=== PATIENT | female | born 1990 | race Caucasian/White ===

== ENCOUNTER 2024-08-29 14:27 | Emergency (ER) | payer MEDICAID, SELFPAY ==
[2024-08-29 14:28] VITALS: BMI 38.2
--- NOTE | 2024-08-29 14:40 | XR_ITS ---
Examination: Pelvic ultrasound, transabdominal, complete Technique: Transabdominal ultrasound of the pelvis performed using grayscale imaging Date and time of exam: August 29, 2024 1534 hrs. Indications: Lower abdominal pelvic pain with irregular heavy menses beginning 3 days ago Findings: Uterus 7.9 cm endometrial stripe 0.3 cm No uterine mass or intrauterine gestation Right ovary 3.6 cm arterial flow Left ovary 3.7 cm arterial flow 25 mm follicular cyst Impression: No uterine mass or intrauterine gestation, negative for retained products of conception Small left ovarian follicular cyst 18 x 25 mm
--- NOTE | 2024-08-29 14:40 | EKG_ITS ---
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1990 Requested By: Paco Resendez Order Number: [id number] Reading MD: Paco Resendez Measurements Intervals [place] Rate: 86 P: 58 [place]: 156 QRS: 3 QRSD: 92 T: 22 QT: 364 QTc: 437 Interpretive Statements SINUS RHYTHM LOW QRS VOLTAGE IN PRECORDIAL LEADS [QRS DEFLECTION < 1.0 mV IN CHEST LEADS] MINIMAL VOLTAGE CRITERIA FOR LVH, CONSIDER NORMAL VARIANT [MEETS CRITERIA IN ONE OF: R(aVL), S(V1), R(V5), R(V5/V6)+S(V1)] Compared to ECG 08/14/2018 13:11:46 Low QRS voltage now present Sinus tachycardia no longer present Short ME interval no longer present /store/S0/[id number].pdf
--- NOTE | 2024-08-29 14:41 | PD.EDRME ---
Rapid Medical Screening Exam RME Arrival date/time: 08/29/24 14:27 34-year-old female with no known medical history presents to the emergency room with a chief complaint of dizziness, lightheadedness, weakness. Patient states that she is on the third day of her period and she is passing big clots. Patient denies any . I have greeted and performed a focused initial assessment of this patient. A comprehensive ED assessment and evaluation of the patient, analysis of all test results, and completion of the medical decision making process will be conducted by additional ED providers. Chief Complaint: General Adult/Misc Complain Time Seen by Provider: 08/29/24 14:29 Vital signs reviewed by provider: Yes
[2024-08-29 14:43] VITALS: BP 143/99; PULSE 97; RESP 20; TEMP 36.9; O2SAT 98; BMI 38.2
[2024-08-29 15:16] LABS: Basophils # (Auto) 0.1 Thou/mm3 (0.0-0.2); Basophils % (Auto) 1 % (0-2.5); Eosinophils # (Auto) 0.1 Thou/mm3 (0.0-0.5); Eosinophils % (Auto) 1 % (0-10); Hematocrit 34.7 % (36.0-46.0); Hemoglobin 11.7 g/dL (12.0-16.0); Immature Granulocytes % (Auto) 0 % (0-0); Immature Granulocytes Auto 0.02 Thou/mm3 (0.00-0.00); Lymphocytes # (Auto) 2.8 Thou/mm3 (1.0-4.8); Lymphocytes % (Auto) 27 % (10-50); Mean Corpuscular HGB Conc 33.7 g/dl (31.0-37.0); Mean Corpuscular Hemoglobin 29.2 pg (25.0-35.0); Mean Corpuscular Volume 87 fL (80-100); Monocytes # (Auto) 0.5 Thou/mm3 (0.0-0.8); Monocytes % (Auto) 5 % (0-12); Neutrophils # (Auto) 6.9 Thou/mm3 (1.8-7.7); Neutrophils % (Auto) 67 % (37-80); Nucleated Red Blood Cell % 0 /100 WBC (0); Platelet Count 362 Thou/mm3 (140-440); Red Blood Count 4.01 Miln/mm3 (4.00-5.20); White Blood Count 10.3 Thou/mm3 (3.6-11.0)
[2024-08-29 15:35] LABS: Alanine Aminotransferase 23 U/L (10-49); Albumin, Serum 4.4 gm/dL (3.5-5.0); Albumin/Globulin Ratio 1.6 (1.2-2.2); Alkaline Phosphatase 58 U/L (46-116); Anion Gap 7 (7-16); Aspartate Amino Transferase 20 U/L (0-34); BUN/Creatinine Ratio 11 Ratio (12-20); Bilirubin,Total 0.5 mg/dL (0.3-1.2); Blood Urea Nitrogen 9 mg/dL (9-23); Calcium 9.1 mg/dL (8.3-10.6); Calcium (Corrected) 9.1 mg/dL (8.5-10.1); Carbon Dioxide 26.6 mMol/L (20.0-31.0); Chloride 108 mMol/L (98-107); Creatinine (Component) 0.8 mg/dL (0.6-1.3); Estimated Creatinine Clearance 108.4 mL/min (>60); Globulin 2.7 gm/dL (2.3-3.5); Glucose 120 mg/dL (74-106); Osmolality,Calculated 282 (275-295); Potassium 3.2 mMol/L (3.4-5.1); Sodium 142 mMol/L (136-145); Total Protein 7.1 gm/dL (5.7-8.2); Troponin I < 0.002 ng/mL (0.0-0.045); eGFR > 60 See Note
[2024-08-29 15:42] LABS: Collection Type, Urine Clean Catch
[2024-08-29 15:51] LABS: Bacteria,Urine Rare; Bilirubin,Urine Negative (Negative); Blood,Urine 3+ (Negative); Color,Urine Light-Red (Lt Yel-Yel); Glucose, Urine Negative (Negative); Ketones,Urine Negative (Negative); Leukocyte Esterase,Urine Positive (Negative); Nitrite,Urine Negative (Negative); PH,Urine 6.5 (5.0-7.0); Protein,Urine 1+ (Neg - Trace); RBC,Urine 183 /hpf (0-3); Specific Gravity,Urine 1.005 (1.001-1.035); Squamous Epithelial Cell,Urine 3 /hpf (0-5); Urobilinogen,Urine Negative mg/dL (0.0-1.0); WBC,Urine 6 /hpf (0-5)
[2024-08-29 15:55] LABS: Clarity,Urine Hazy (Clear/Hazy)
[2024-08-29 16:00] LABS: Partial Thromboplastin Time 26.9 Seconds (22.0-36.0); Prothrombin Time 10.7 Seconds (9.0-12.2)
--- NOTE | 2024-08-29 16:01 | XR_ITS ---
Examination: Abdomen sonogram, Limited Date and time of exam: August 29, 2024 1640 hrs. Indications: Right lower abdominal pain beginning 3 days ago Technique: Real-time bain scale transabdominal sonographic images of the upper abdomen obtained. Findings: No sonographic visualization appendix Impression: No sonographic visualization appendix
[2024-08-29 18:50] LABS: HCG Qualitative,Urine Negative
[2024-08-29] MEDS: POTASSIUM CHLORIDE 10% 20 MEQ/15 ML UDC 40 MEQ PO (19:02)
--- NOTE | 2024-08-29 19:14 | PD.EDADULT ---
ED General RME/HPI General Chief complaint: General Adult/Misc Complain Stated complaint: 3RD DAY OF PERIOD; HAVING ABNORMAL PAIN/SMELL Time Seen by Provider: 08/29/24 14:29 Arrival date/time: 08/29/24 14:27 RME / HPI RME / HPI narrative: 08/29/24 14:27 34-year-old female with no known medical history presents to the emergency room with a chief complaint of dizziness, lightheadedness, weakness. Patient states that she is on the third day of her period and she is passing big clots. Patient denies any . I have greeted and performed a focused initial assessment of this patient. A comprehensive ED assessment and evaluation of the patient, analysis of all test results, and completion of the medical decision making process will be conducted by additional ED providers. ------- This section includes all my notes and documentations, including HPI, PE, and ED course. Jamal Velázquez MD HPI: 34yo female presents to the ED for a chief complaint of diffuse abdominal pain when urinating. Patient states she is on day 3 of her period, reporting she's had significant diffuse abdominal pain when she urinates. She states she has been passing more blood clots than usual, reporting they have a foul odor. She was seen by her PCP and almost fainted, so she came in for evaluation. Patient reports associated lightheadedness, dizziness, and generalized weakness. She denies any falls or injuries. No other complaints reported. ROS: All negative except as documented in HPI. Physical Exam: General: Alert and oriented. No acute distress when remaining still. Eyes: Conjunctivae and lids clear. ENT: No nasal congestion. Neck: Supple. Heart: RRR. Lungs: No respiratory distress. Good air movement. No rhonchi, wheezing, rales. Abdomen: Soft and nontender. Legs: No clubbing, cyanosis, edema. Skin: Warm and dry. Neuro: Alert and oriented X 3. I reviewed all diagnostic test results. My interpretation of the EKG is sinus rhythm with no acute ST?T changes. My review of the US abdominal report is NAD. My review of the US pelvis report is NAD. Blood tests and urine tests unremarkable except UTI. At this point, diagnoses include UTI and dysmenorrhea. Prescribed cefdinir and recommended supportive care. Based on my best medical judgment, made decision no further evaluation or treatment indicated at this time. Patient understands and agrees to the discharge instructions customized and printed, see below. Discharge instructions from Dr. Velázquez: 1. After evaluation, your symptoms are due to UTI (early kidney infection) and severe menstruation pain. 2. Take cefdinir to kill the germs causing the infection. Increase oral fluid to flush it out. Maintain clear urine. If dark or yellow, increase oral fluid. 3. Zofran for nausea/vomiting. Toradol and Tylenol with codeine for pain. 4. See a private doctor on 09/01/24 if not completely better. 5. Seek immediate medical care with worsening, fever, or with any concerns. Jamal Velázquez MD Related Data Previous Rx's ?Medication ?Instructions ?Recorded acetaminophen 300 mg-codeine 30 mg 2 tab PO Q8H PRN pain #20 tabs 08/29/24 tablet cefdinir 300 mg capsule 300 mg PO BID #14 caps 08/29/24 ketorolac 10 mg tablet 10 mg PO Q8H PRN pain 5 days #10 08/29/24 tabs ondansetron 4 mg disintegrating 4 mg PO TID PRN nausea and 08/29/24 tablet vomiting 30 days #10 tabs Allergies Allergy/AdvReac Type Severity Reaction Status Date / Time No Known Allergies Allergy Verified 08/29/24 14:30 Review of Systems Review of Systems Systems Reviewed: All systems reviewed, normal except as documented Past Medical History Past Medical History CARDIAC: Positive Cardiac Disorders and Hypertension; Negative Congestive Heart Failure RESPIRATORY: Positive Asthma; Negative Chronic Obstructive Pulmonary Disease (COPD) GENITOURINARY: Negative Renal Disease ENDOCRINE: Positive Hypothyroidism; Negative Diabetes Mellitus Type 1 or Diabetes Mellitus Type 2 Surgical History SURGICAL: Positive Section Social History SMOKING STATUS: Former smoker ED Exam Narrative Physical exam: As noted in HPI. Course Quality Measures none Orders Category Date Time Status EKG (ED ONLY) *Do not use* NOW Care 08/29/24 14:40 Completed EKG (ED Only) Stat Exams 08/29/24 14:40 Draft US abdomen limited Stat Exams 08/29/24 16:01 Completed US pelvic complete Stat Exams 08/29/24 14:40 Completed CBC Stat Lab 08/29/24 15:06 Completed Comprehensive Metabolic Panel Stat Lab 08/29/24 15:06 Completed HCG Qualitative,Urine Stat Lab 08/29/24 15:29 Completed PT [Prothrombin Time with INR] Stat Lab 08/29/24 15:06 Completed PTT [Partial Thromboplastin Time] Stat Lab 08/29/24 15:06 Completed Troponin I Stat Lab 08/29/24 15:06 Completed Urinalysis Stat Lab 08/29/24 15:29 Completed Urine Culture Stat Lab 08/29/24 15:29 Received KCL 10% Liq UDC 15 ML Med 08/29/24 18:41 Discontinued 40 meq PO X1 ONE Vital Signs Vital signs: Vital Signs Temperature 98.5 F 08/29/24 14:43 Pulse Rate 97 08/29/24 14:43 Respiratory Rate 20 08/29/24 14:43 Blood Pressure 143/99 H 08/29/24 14:43 Pulse Oximetry (%) 98 08/29/24 14:43 Oxygen Delivery Method Room Air 08/29/24 14:43 [facility] Patient data External records reviewed:: [facility] previous records (Per chart review, patient was seen here on 05/16/21 for atypical chest pain.) Clinical information provided by:: patient Social determinants that could affect healthcare access:: none Patient has the following chronic illnesses:: HTN How is presenting disease/condition affected by chronic disease/condition?: uneffected by Evaluation data The following diagnostics were reviewed and interpreted by me:: lab results, radiology exam(s) and EKG tracing(s) Lab and/or radiology exams considered but not ordered:: none Interpretation Summary: UTI, Dysmenorrhea Medications Medications considered but not ordered:: none Medication administrations:: Medication Administration History Discontinued Medications Potassium Chloride (Potassium Chloride 10% 20 Meq/15 Ml Udc) 40 meq PO X1 ONE Stop: 08/29/24 18:42 Last Admin: 08/29/24 19:02 Dose: 40 meq Documented By: ER Potassium Chloride Consultations Consultation(s) initiated? (list below): No Diagnosis Differential Diagnosis ED Complaint MDM: UTI, pyelonephritis, appendicitis, dysmenorrhea, GERD, PUD, gastritis Most likely diagnosis given after review of the tests above:: UTI, Dysmenorrhea Admission Indicated Admission indicated?: not indicated Explain why admission is indicated or not indicated:: No criteria for admission. Admission Request Was there a request for admission?: No Disposition Plan Disposition Plan: Discharge Discharge Attestation Discharge Attestation: The patient and all family members were given an opportunity to ask questions and understood the discharge instructions. Discharge instructions specifically effects, indications for sooner follow up or return to the emergency department, and the expected course of current diagnosis. Patient condition: Stable Medical Decision Making MDM Narrative MDM Narrative: Scribe Attestation: 08/29/24 Nicole Martínez am scribing for and in the presence of Dr. Velázquez. Differential Diagnosis Differential Diagnosis: UTI, pyelonephritis, appendicitis, dysmenorrhea, GERD, PUD, gastritis Lab Data 08/29/24 15:06 08/29/24 15:06 Labs: Lab Results 08/29/24 08/29/24 Range/Units 15:06 15:29 WBC 10.3 (3.6-11.0) Thou/mm3 RBC 4.01 (4.00-5.20) Miln/mm3 Hgb 11.7 L (12.0-16.0) g/dL Hct 34.7 L (36.0-46.0) % MCV 87 (80-100) fL MCH 29.2 (25.0-35.0) pg MCHC 33.7 (31.0-37.0) g/dl RDW Std Deviation 40.0 (36.4-46.3) fL Plt Count 362 (140-440) Thou/mm3 Neut % (Auto) 67 (37-80) % Lymph % (Auto) 27 (10-50) % [place] % (Auto) 5 (0-12) % Eos % (Auto) 1 (0-10) % Baso % (Auto) 1 (0-2.5) % Neut # (Auto) 6.9 (1.8-7.7) Thou/mm3 Lymph # (Auto) 2.8 (1.0-4.8) Thou/mm3 [place] # (Auto) 0.5 (0.0-0.8) Thou/mm3 Eos # (Auto) 0.1 (0.0-0.5) Thou/mm3 Baso # (Auto) 0.1 (0.0-0.2) Thou/mm3 Immature Gran # (Auto) 0.02 H (0.00-0.00) Thou/mm3 Absolute Nucleated RBC 0.00 (0.00-0.00) Thou/mm3 Immature Gran % 0 (0-0) % Nucleated RBC % 0 (0) /100 WBC PT 10.7 (9.0-12.2) Seconds INR 1.0 (0.9-1.3) APTT 26.9 (22.0-36.0) Seconds Sodium 142 (136-145) mMol/L Potassium 3.2 L (3.4-5.1) mMol/L Chloride 108 H (98-107) mMol/L Carbon Dioxide 26.6 (20.0-31.0) mMol/L Anion Gap 7 (7-16) BUN 9 (9-23) mg/dL Creatinine 0.8 (0.6-1.3) mg/dL Estim Creat Clear Calc 108.4 (>60) mL/min eGFR > 60 (60 - ) See Note BUN/Creatinine Ratio 11 L (12-20) Ratio Glucose 120 H (74-106) mg/dL Calculated Osmolality 282 (275-295) Calcium 9.1 (8.3-10.6) mg/dL Corrected Calcium 9.1 (8.5-10.1) mg/dL Total Bilirubin 0.5 (0.3-1.2) mg/dL AST 20 (0-34) U/L ALT 23 (10-49) U/L Alkaline Phosphatase 58 (46-116) U/L Troponin I < 0.002 (0.0-0.045) ng/mL Total Protein 7.1 (5.7-8.2) gm/dL Albumin 4.4 (3.5-5.0) gm/dL Globulin 2.7 (2.3-3.5) gm/dL Albumin/Globulin Ratio 1.6 (1.2-2.2) Ur Collection Type Clean Catch Urine Color Light-Red (Lt Yel-Yel) Urine Clarity Hazy (Clear/Hazy) Urine pH 6.5 (5.0-7.0) Ur Specific [place] 1.005 (1.001-1.035) Urine Protein 1+ A (Neg - Trace) Urine Glucose (UA) Negative (Negative) Urine Ketones Negative (Negative) Urine Blood 3+ A (Negative) Urine Nitrite Negative (Negative) Urine Bilirubin Negative (Negative) Urine Urobilinogen (Auto) Negative (0.0-1.0) mg/dL Ur Leukocyte Esterase Positive (Negative) Urine RBC 183 H (0-3) /hpf Urine WBC 6 H (0-5) /hpf Ur Squamous Epith Cells 3 (0-5) /hpf Urine Bacteria Rare (None) Urine HCG, Qual Negative Discharge Plan Plan Patient Disposition: HOME (Self Care) Prescriptions/Referrals Prescriptions/Med Rec: New acetaminophen-codeine 300-30 mg tablet 2 tab PO Q8H MDD 6 PRN (Reason: pain) Qty: 20 0RF ketorolac 10 mg tablet 10 mg PO Q8H PRN (Reason: pain) 5 Days Qty: 10 0RF ondansetron 4 mg tablet,disintegrating 4 mg PO TID PRN (Reason: nausea and vomiting) 30 Days Qty: 10 0RF cefdinir 300 mg capsule 300 mg PO BID Qty: 14 0RF Referrals: Arsen Menezes([facility])MD [Primary Care Provider] - In 1 week Problem List Clinical Impression: UTI (urinary tract infection), Dysmenorrhea Patient/Caregiver Discharge Instructions Discharge Activity: activity as tolerated Education Materials: ED MENSTRUAL CRAMPING, ED CYSTITIS Female Adult Additional Instructions: Discharge instructions from Dr. Velázquez: 1. After evaluation, your symptoms are due to UTI (early kidney infection) and severe menstruation pain. 2. Take cefdinir to kill the germs causing the infection.? Increase oral fluid to flush it out.? Maintain clear urine.? If dark or yellow, increase oral fluid. 3. Zofran for nausea/vomiting.? Toradol and Tylenol with codeine for pain. 4. See a private doctor on 09/01/24 if not completely better. 5. Seek immediate medical care with worsening, fever, or with any concerns. Print Language: Telugu Stand Alone Forms: Maddy Award Info., Patient Portal Info Letter
== END 2024-08-29 19:32 | disposition home or self-care (01) ==
PROVIDERS: Nurse Practitioner Family; Emergency Provider Emergency Medicine; PCP Family Medicine
DX: N39.0 Urinary tract infection, site not specified (principal); N94.6 Dysmenorrhea, unspecified; R10.31 Right lower quadrant pain; R10.2 Pelvic and perineal pain; R94.31 Abnormal electrocardiogram [ECG] [EKG]
CPT/HCPCS: 36415; 76705; 76856; 80053; 81001; 81025; 84484; 85025; 85610; 85730; 87086; 93005; 99284; A9270

== ENCOUNTER 2024-12-08 15:00 | Emergency (ER) | payer MEDICAID, SELFPAY ==
[2024-12-08 15:07] VITALS: BP 155/92; PULSE 80; RESP 18; TEMP 36.9; O2SAT 98; BMI 37.2
--- NOTE | 2024-12-08 15:20 | EKG_ITS ---
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
--- NOTE | 2024-12-08 15:20 | XR_ITS ---
Examination: CT brain head without contrast. 2-D sagittal coronal reconstructions Date and time of exam:December 08, 2024 1602 hours Comparison July 07, 2018 CTDI: vol (mGy):49 DLP: (mGycm):1002 INDICATIONS: Headaches dizziness weakness beginning one week ago Technique: Multiple CT axial sections of the brain have been obtained, 5 mm slice thickness. Contrast has not been administered. 2-D sagittal, coronal reconstructions have been obtained Low dose protocols were performed. One or more of the following dose reduction techniques were used; automated exposure control, adjustment of the mA and/or KV according to patient size, use of iterative reconstruction technique. Findings: No significant ventricular enlargement. Intra-axial or extra-axial hemorrhage density is not seen. No mass effect or midline shift Basal cisterns are not remarkable. Fourth ventricle is midline. Cranial vault intact. Impression: Negative for acute hemorrhage, mass effect or midline shift
--- NOTE | 2024-12-08 15:21 | PD.EDRME ---
Rapid Medical Screening Exam RME Arrival date/time: 12/08/24 15:00 34-year-old female with no known medical history presents to the emergency room with a chief complaint of dizziness, headache, lightheadedness x 5 days I have greeted and performed a focused initial assessment of this patient. A comprehensive ED assessment and evaluation of the patient, analysis of all test results, and completion of the medical decision making process will be conducted by additional ED providers. Chief Complaint: Dizziness Time Seen by Provider: 12/08/24 15:08 Vital signs: Vital Signs Temperature 98.5 F 12/08/24 15:07 Pulse Rate 80 12/08/24 15:07 Respiratory Rate 18 12/08/24 15:07 Blood Pressure 155/92 H 12/08/24 15:07 Pulse Oximetry (%) 98 12/08/24 15:07 Oxygen Delivery Method Room Air 12/08/24 15:07 Vital signs reviewed by provider: Yes
[2024-12-08 15:39] LABS: Basophils # (Auto) 0.1 Thou/mm3 (0.0-0.2); Basophils % (Auto) 1 % (0-2.5); Eosinophils # (Auto) 0.1 Thou/mm3 (0.0-0.5); Eosinophils % (Auto) 1 % (0-10); Hematocrit 37.4 % (36.0-46.0); Hemoglobin 12.3 g/dL (12.0-16.0); Immature Granulocytes Auto 0.06 Thou/mm3 (0.00-0.00); Lymphocytes # (Auto) 3.2 Thou/mm3 (1.0-4.8); Lymphocytes % (Auto) 24 % (10-50); Mean Corpuscular HGB Conc 32.9 g/dl (31.0-37.0); Mean Corpuscular Hemoglobin 29.7 pg (25.0-35.0); Mean Corpuscular Volume 90 fL (80-100); Monocytes # (Auto) 0.7 Thou/mm3 (0.0-0.8); Monocytes % (Auto) 5 % (0-12); Neutrophils # (Auto) 9.4 Thou/mm3 (1.8-7.7); Neutrophils % (Auto) 69 % (37-80); Nucleated Red Blood Cell # 0.00 Thou/mm3 (0.00-0.00); Nucleated Red Blood Cell % 0 /100 WBC (0); Platelet Count 370 Thou/mm3 (140-440); RDW Standard Deviation 41.6 fL (36.4-46.3); Red Blood Count 4.14 Miln/mm3 (4.00-5.20); White Blood Count 13.5 Thou/mm3 (3.6-11.0)
[2024-12-08 15:56] LABS: B-Type Natriuretic Peptide 24 pg/mL (0-100)
[2024-12-08 15:58] LABS: Alanine Aminotransferase 28 U/L (10-49); Albumin, Serum 4.4 gm/dL (3.5-5.0); Albumin/Globulin Ratio 1.6 (1.2-2.2); Alkaline Phosphatase 58 U/L (46-116); Anion Gap 7 (7-16); Aspartate Amino Transferase 23 U/L (0-34); BUN/Creatinine Ratio 9 Ratio (12-20); Bilirubin,Total 0.4 mg/dL (0.3-1.2); Blood Urea Nitrogen 8 mg/dL (9-23); Calcium 9.6 mg/dL (8.3-10.6); Calcium (Corrected) 9.6 mg/dL (8.5-10.1); Carbon Dioxide 27.5 mMol/L (20.0-31.0); Chloride 106 mMol/L (98-107); Creatinine (Component) 0.9 mg/dL (0.6-1.3); Estimated Creatinine Clearance 94.9 mL/min (>60); Globulin 2.7 gm/dL (2.3-3.5); Glucose 108 mg/dL (74-106); Magnesium 1.6 mg/dL (1.6-2.6); Osmolality,Calculated 278 (275-295); Potassium 3.9 mMol/L (3.4-5.1); Sodium 140 mMol/L (136-145); Total Protein 7.1 gm/dL (5.7-8.2); Troponin I < 0.002 ng/mL (0.0-0.045); eGFR > 60 See Note
[2024-12-08 16:23] LABS: Collection Type, Urine Clean Catch
[2024-12-08 16:28] LABS: Bilirubin,Urine Negative (Negative); Blood,Urine Negative (Negative); Clarity,Urine Clear (Clear/Hazy); Color,Urine Colorless (Lt Yel-Yel); Glucose, Urine Negative (Negative); Ketones,Urine Negative (Negative); Leukocyte Esterase,Urine Negative (Negative); Nitrite,Urine Negative (Negative); PH,Urine 6.5 (5.0-7.0); Protein,Urine Negative (Neg - Trace); RBC,Urine 1 /hpf (0-3); Specific Gravity,Urine 1.004 (1.001-1.035); Squamous Epithelial Cell,Urine < 1 /hpf (0-5); Urobilinogen,Urine Negative mg/dL (0.0-1.0); WBC,Urine < 1 /hpf (0-5)
[2024-12-08 16:43] LABS: Amphetamine/Methamp Scrn,U Negative (Negative); Barbiturate Screen,Urine Negative (Negative); Benzodiazepines Screen,Urine Negative (Negative); Benzoylecgonine Screen, Ur Negative (Negative); Fentanyl Screen,Urine Negative (Negative); Opiate Screen,Urine Negative (Negative); THC Screen,Urine Negative (Negative)
--- NOTE | 2024-12-08 19:53 | PD.EDDIZZY ---
ED Dizzyness RME/HPI General Chief Complaint: Dizziness Stated Complaint: Dizzy, weak, shaky Time Seen by Provider: 12/08/24 15:08 Arrival date/time: 12/08/24 15:00 RME / HPI RME / HPI Narrative: 12/08/24 15:00 34-year-old female with no known medical history presents to the emergency room with a chief complaint of dizziness, headache, lightheadedness x 5 days I have greeted and performed a focused initial assessment of this patient. A comprehensive ED assessment and evaluation of the patient, analysis of all test results, and completion of the medical decision making process will be conducted by additional ED providers. DR. PEREZ MAIN ED EVALUATION: 34 y/o female presents to ED c/o Related Data Previous Rx's ?Medication ?Instructions ?Recorded acetaminophen 300 mg-codeine 30 mg 2 tab PO Q8H PRN pain #20 tabs 08/29/24 tablet cefdinir 300 mg capsule 300 mg PO BID #14 caps 08/29/24 Allergies Allergy/AdvReac Type Severity Reaction Status Date / Time No Known Allergies Allergy Verified 12/08/24 15:03 Review of Systems Review of Systems Systems Reviewed: All systems reviewed, normal except as documented Past Medical History Past Medical History CARDIAC: Positive Cardiac Disorders and Hypertension RESPIRATORY: Positive Asthma ENDOCRINE: Positive Hypothyroidism Social History SMOKING STATUS: Former smoker ED Exam Narrative Physical exam: Generally patient is alert oriented x 3 in no obvious distress, heart regular rate and rhythm, lungs clear to auscultation equal bilaterally abdomen soft bowel sounds present nondistended nontender skin warm pale and dry neurologic exam slightly tremulous bilaterally with lxjnbi-hi-yupy movements intact. No focal motor deficits. No facial asymmetry. Alert and oriented x 4. Course Quality Measures none Orders Category Date Time Status EKG (ED ONLY) *Do not use* NOW Care 12/08/24 15:[address] head/brain wo con Stat Exams 12/08/24 15:20 Completed EKG (ED Only) Stat Exams 12/08/24 15:20 Draft B-Type Natriuretic Peptide Stat Lab 12/08/24 15:32 Completed CBC Stat Lab 12/08/24 15:32 Completed Comprehensive Metabolic Panel Stat Lab 12/08/24 15:32 Completed Drug Screen,Urine Stat Lab 12/08/24 16:18 Completed Magnesium Stat Lab 12/08/24 15:32 Completed Troponin I Stat Lab 12/08/24 15:32 Completed Urinalysis Stat Lab 12/08/24 16:18 Completed Vital Signs Vital signs: Vital Signs Temperature 98.5 F 12/08/24 15:07 Pulse Rate 80 12/08/24 15:07 Respiratory Rate 18 12/08/24 15:07 Blood Pressure 155/92 H 12/08/24 15:07 Pulse Oximetry (%) 98 12/08/24 15:07 Oxygen Delivery Method Room Air 12/08/24 15:07 Dizziness MDM Narrative MDM Narrative:: I interpreted all labs. There was no significant abnormality. Presenting blood pressure was 155/92. EKG was normal. Patient states no possibility of . Head CT was obtained prior to my evaluation which was normal. I had a long discussion with the patient about her lab results and the fact that they appear relatively unremarkable. Since it sounds like the patient may be having near syncopal episodes I will refer the patient back to her primary care physician for possible cardiology referral. Patient data External records reviewed:: [facility] previous records (Reviewed prior ED records from 08/29/24. Patient was seen for Dysmenorrhea.) Clinical information provided by:: patient Social determinants that could affect healthcare access:: none Patient has the following chronic illnesses:: Hypertension, Asthma, Hypothyroidism How is presenting disease/condition affected by chronic disease/condition?: exacerbated by Evaluation data The following diagnostics were reviewed and interpreted by me:: lab results, radiology exam(s) and EKG tracing(s) Lab and/or radiology exams considered but not ordered:: None Interpretation Summary: RADIOLOGY Head/Brain CT: Findings: No significant ventricular enlargement. Intra-axial or extra-axial hemorrhage density is not seen. No mass effect or midline shift Basal cisterns are not remarkable. Fourth ventricle is midline. Cranial vault intact. Impression: Negative for acute hemorrhage, mass effect or midline shift Medications / Prescriptions Medications or Prescriptions considered but not ordered:: None Medication administrations:: See above if any Consultations Consultation(s) initiated? (list below): No Diagnosis Dizziness Differential Diagnosis: adverse reaction to drug, benign paroxysmal positional vertigo, orthostatic hypotension, vertebral basilar insufficiency, cerebrovascular accident, acute vestibular neuronitis and transient cerebral ischemia Most likely diagnosis given after review of the tests above:: Near syncope Admission Indicated Admission indicated?: not indicated Explain why admission is indicated or not indicated:: Patient does not meet admission criteria. Admission Request Was there a request for admission?: No Disposition Plan Disposition Plan: other (specify) Discharge Plan Plan Patient Disposition: HOME (Self Care) Prescriptions/Referrals Prescriptions/Med Rec: No Action acetaminophen-codeine 300-30 mg tablet 2 tab PO Q8H MDD 6 PRN (Reason: pain) Qty: 20 0RF cefdinir 300 mg capsule 300 mg PO BID Qty: 14 0RF Referrals: No Primary/Family,Physician [Primary Care Provider] - In 1 week Problem List Clinical Impression: Near syncope Patient/Caregiver Discharge Instructions Additional Instructions: Off work through December 15. Follow-up with your doctor for cardiology referral. Return to ER as needed or if condition worsens. Print Language: Telugu Stand Alone Forms: Maddy Award Info., Patient Portal Info Letter
[2024-12-08 20:00] VITALS: BP 138/90; PULSE 82; RESP 18; TEMP 36.7; O2SAT 99
--- NOTE | 2024-12-08 20:08 | EDNOTE_ITS ---
Emergency Room Addendum Addendum Narrative: HPI: 34-year-old female with a 5-day history of feeling as if she is going to pass out. She feels dizzy and feels as if she is going to pass out with mild strange feeling in her head, possibly a headache. She denies prior episodes. No incidences that could have led to this feeling 5 days ago. She denies head trauma. She was in her normal state of health until 5 days ago. She is able to walk. She feels weak all over. No seizure activity. No history of hyper tension or diabetes.
== END 2024-12-08 20:12 | disposition home or self-care (01) ==
PROVIDERS: Nurse Practitioner Family; Emergency Provider Emergency Medicine
DX: R42 Dizziness and giddiness (principal); R53.1 Weakness; I49.8 Other specified cardiac arrhythmias
CPT/HCPCS: 36415; 70450; 80053; 80307; 81001; 83735; 83880; 84484; 85025; 93005; 99283

== ENCOUNTER → 2024-12-21 | Outpatient (CLI) | payer MEDICAID, SELFPAY ==
--- NOTE | 2024-12-21 09:22 | XR_ITS ---
Examination: Transvaginal ultrasound of the pelvis, complete Technique: Transvaginal sonographic images pelvis performed using bain scale imaging Exam date and time: December 21, 2024 1005 hours INDICATIONS: Pelvic pain beginning several weeks ago FINDINGS: Uterus 8.0 cm endometrial stripe 0.9 cm Minimal fluid in the endometrial canal. No uterine mass Right ovary 3.8 cm arterial flow 15 mm follicular cyst Left ovary 4.2 cm arterial flow small follicles, the largest 12 mm IMPRESSION: No uterine mass or intrauterine gestation.
--- NOTE | 2024-12-21 09:22 | XR_ITS ---
Examination: Thyroid sonography. TECHNIQUE: Grayscale sonographic images thyroid lobes Date and time: December 25, 2024 0951 hours INDICATIONS: Enlarged thyroid on examination today FINDINGS: Right thyroid 4.1 cm. Left thyroid 3.8 cm. No cystic or solid nodules IMPRESSION: Negative examination
--- NOTE | 2024-12-21 09:22 | XR_ITS ---
Examination: Pelvic ultrasound, transabdominal, complete Technique: Transabdominal ultrasound of the pelvis performed using grayscale imaging Date and time of exam: December 21, 2024 0955 hours INDICATIONS: Pelvic pain beginning several weeks ago TECHNIQUE: Uterus 8.4 cm I 0.6 cm No uterine mass Right ovary 4.7 cm arterial flow small follicles Left ovary 4.4 cm arterial flow cyst 18 x 15 mm with internal echoes IMPRESSION:: Prominent ovaries Left hemorrhagic ovarian cyst 18 x 11 x 15 mm Recommend 3-6 month follow-up pelvic sonography
[2024-12-21 09:57] LABS: HCG Qualitative,Urine Negative
--- NOTE | 2024-12-21 09:57 | XR_ITS ---
Examination: CT abdomen with intravenous contrast CT pelvis with intravenous contrast 2-D coronal reconstructions 2-D sagittal reconstructions Date and time of exam:December 21, 2024 1036 hours INDICATIONS: Generalized abdominal pain beginning 2 weeks ago. CTDI: vol (mGy) 13 DLP: (mGycm) 759 Technique: Multiple axial sections of the abdomen and pelvis have been obtained. 64 slice high-resolution scanner used. 3 mm axial sections have been obtained, post intravenous injection 60 cc Isovue-370 2-D sagittal, coronal reconstructions obtained. Low dose protocols were performed. One or more of the following dose reduction techniques were used; automated exposure control, adjustment of the mA and/or KV according to patient size, use of iterative reconstruction technique. Findings: No focal liver or splenic lesions No gallstones No pancreatic or adrenal mass No renal or ureteral calculi, no hydronephrosis Aorta normal size No pericecal inflammatory change 13 mm fat-containing umbilical hernia No bowel obstruction Anteverted uterus Mass contiguous with the fundus of uterus on the right side which is likely mildly prominent right ovary Bladder intact Mild disc narrowing L5-S1 IMPRESSION: No renal or ureteral calculi, no hydronephrosis No pericecal inflammatory change Mildly prominent right ovary
== END | disposition home or self-care (01) ==
LOC: CCTX 08:23
PROVIDERS: PCP Nurse Practitioner Family; Referring Provider Nurse Practitioner Family; Visit Provider Nurse Practitioner Family
DX: E04.9 Nontoxic goiter, unspecified (principal); R10.817 Generalized abdominal tenderness; R11.0 Nausea; R27.0 Ataxia, unspecified; R42 Dizziness and giddiness; N83.8 Other noninflammatory disorders of ovary, fallopian tube and broad ligament
CPT/HCPCS: 74177; 76536; 76830; 76856; 81025; A4649; Q9967

== ENCOUNTER 2025-01-18 09:32 | Emergency (ER) | payer MEDICAID, SELFPAY ==
[2025-01-18 09:33] VITALS: BMI 39.8
[2025-01-18 09:42] VITALS: BP 140/96; PULSE 92; RESP 19; TEMP 37; O2SAT 99
--- NOTE | 2025-01-18 09:53 | XR_ITS ---
Examination: PA lateral chest 2 views TECHNIQUE: Upright PA lateral chest 2 views Date and time: January 18, 2025 1011 hours, comparison March 23, 2024 INDICATIONS: Chest pain weakness bodyaches beginning one week ago FINDINGS: Normal heart size The lungs are clear. The osseous structures are intact IMPRESSION: No active disease
--- NOTE | 2025-01-18 09:53 | EKG_ITS ---
[facility] Test Date: 2025-01-18 Pat Name: ZEYAD ALEXANDER Department: Room: - Gender: Female Software Technical Lead: : 1990 Requested By: Aiden Michael (PETRONA) Order Number: [id number] Reading MD: Aiden Michael (DEBRANDER) Measurements Intervals Radiant Rate: 89 P: 45 MS: 146 QRS: 13 QRSD: 92 T: 35 QT: 362 QTc: 442 Interpretive Statements SINUS RHYTHM Compared to ECG 12/08/2024 15:24:15 Sinus arrhythmia no longer present /store/S0/[id number].pdf
[2025-01-18 10:13] LABS: Basophils # (Auto) 0.1 Thou/mm3 (0.0-0.2); Basophils % (Auto) 1 % (0-2.5); Eosinophils # (Auto) 0.1 Thou/mm3 (0.0-0.5); Eosinophils % (Auto) 1 % (0-10); Hematocrit 35.9 % (36.0-46.0); Hemoglobin 12.0 g/dL (12.0-16.0); Immature Granulocytes Auto 0.05 Thou/mm3 (0.00-0.00); Lymphocytes # (Auto) 2.8 Thou/mm3 (1.0-4.8); Lymphocytes % (Auto) 30 % (10-50); Mean Corpuscular HGB Conc 33.4 g/dl (31.0-37.0); Mean Corpuscular Hemoglobin 30.2 pg (25.0-35.0); Mean Corpuscular Volume 90 fL (80-100); Monocytes # (Auto) 0.5 Thou/mm3 (0.0-0.8); Monocytes % (Auto) 6 % (0-12); Neutrophils # (Auto) 5.6 Thou/mm3 (1.8-7.7); Neutrophils % (Auto) 61 % (37-80); Nucleated Red Blood Cell # 0.00 Thou/mm3 (0.00-0.00); Nucleated Red Blood Cell % 0 /100 WBC (0); Platelet Count 380 Thou/mm3 (140-440); RDW Standard Deviation 40.9 fL (36.4-46.3); Red Blood Count 3.98 Miln/mm3 (4.00-5.20); White Blood Count 9.2 Thou/mm3 (3.6-11.0)
[2025-01-18 10:26] LABS: Collection Type, Urine Clean Catch
[2025-01-18 10:30] LABS: HCG Qualitative,Urine Negative
[2025-01-18 10:33] LABS: Bacteria,Urine Rare; Bilirubin,Urine Negative (Negative); Blood,Urine Negative (Negative); Clarity,Urine Clear (Clear/Hazy); Color,Urine Colorless (Lt Yel-Yel); Culture Indicated,Urine Not Indicated; Glucose, Urine Negative (Negative); Ketones,Urine Negative (Negative); Leukocyte Esterase,Urine Negative (Negative); Nitrite,Urine Negative (Negative); PH,Urine 6.5 (5.0-7.0); Protein,Urine Negative (Neg - Trace); RBC,Urine 1 /hpf (0-3); Specific Gravity,Urine 1.004 (1.001-1.035); Squamous Epithelial Cell,Urine 1 /hpf (0-5); Urobilinogen,Urine Negative mg/dL (0.0-1.0); WBC,Urine < 1 /hpf (0-5)
[2025-01-18 10:34] LABS: Alanine Aminotransferase 30 U/L (10-49); Albumin, Serum 4.5 gm/dL (3.5-5.0); Albumin/Globulin Ratio 1.8 (1.2-2.2); Alkaline Phosphatase 60 U/L (46-116); Anion Gap 12 (7-16); Aspartate Amino Transferase 20 U/L (0-34); BUN/Creatinine Ratio 6 Ratio (12-20); Bilirubin,Total 0.4 mg/dL (0.3-1.2); Blood Urea Nitrogen 6 mg/dL (9-23); Calcium 10.0 mg/dL (8.3-10.6); Calcium (Corrected) 10.0 mg/dL (8.5-10.1); Carbon Dioxide 24.2 mMol/L (20.0-31.0); Chloride 104 mMol/L (98-107); Creatinine (Component) 1.0 mg/dL (0.6-1.3); Estimated Creatinine Clearance 88.7 mL/min (>60); Globulin 2.5 gm/dL (2.3-3.5); Glucose 91 mg/dL (74-106); Osmolality,Calculated 277 (275-295); Potassium 3.8 mMol/L (3.4-5.1); Sodium 140 mMol/L (136-145); Total Protein 7.0 gm/dL (5.7-8.2); Troponin I < 0.002 ng/mL (0.0-0.045); eGFR > 60 See Note
[2025-01-18 10:38] LABS: Amphetamine/Methamp Scrn,U Negative (Negative); Barbiturate Screen,Urine Negative (Negative); Benzodiazepines Screen,Urine Negative (Negative); Benzoylecgonine Screen, Ur Negative (Negative); Fentanyl Screen,Urine Negative (Negative); Opiate Screen,Urine Negative (Negative); THC Screen,Urine Negative (Negative)
[2025-01-18 12:20] VITALS: BP 150/93; PULSE 89; RESP 19; TEMP 36.8; O2SAT 98
--- NOTE | 2025-01-18 12:46 | EDNOTE_ITS ---
ED General RME/HPI General Chief complaint: Shortness of Breath/Dyspnea Stated complaint: DIFF BREATHNG x 2 DAYS, UTI x 3 WEEKS Time Seen by Provider: 01/18/25 09:54 Arrival date/time: 01/18/25 09:32 RME / HPI RME / HPI narrative: 34-year-old female patient with no significant past medical history, came in for evaluation regarding feeling ill. Patient told me that she has been having on and off shortness of breath, not feeling well, was diagnosed with UTI 3 weeks ago and was advised to come to the emergency room because antibiotic she was taking which is Bactrim is resistant to the culture and sensitivity results. Patient was also given 3 shots of antibiotic IM. Currently patient is not having any symptoms of dysuria frequency back pain or other complaints. No cough no fever. Related Data Previous Rx's ?Medication ?Instructions ?Recorded acetaminophen 300 mg-codeine 30 mg 2 tab PO Q8H PRN pa in #20 tabs 08/29/24 tablet cefdinir 300 mg capsule 300 mg PO BID #14 caps 08/29 Allergies Allergy/AdvReac Type Severity Reaction Status Date / Time No Known Allergies Allergy Verified 01/18/25 09:36 Review of Systems Review of Systems Narrative Review of Systems: Review of system reviewed and within normal limits except mentioned in HPI ED Exam Narrative Physical exam: VITAL SIGNS: Reviewed. GENERAL APPEARANCE: Alert and interactive, follows commands, no acute distress, HEAD AND FACE: Non-traumatic. ENT: PERRL, pink conjunctivitis, eyelid no trauma, Mucous membrane moist. NECK: Supple, nontender, no nuchal rigidity. CHEST: No tenderness, no crepitus, no paradoxical movement, no retractions. LUNGS: Clear, well ventilated, symmetric, no rales, no wheezing, no ronchi, no stridor, good breath sounds bilaterally. HEART: Regular rate, regular rhythm, no murmur, no gallops. ABDOMEN: Soft, positive bowel sounds, nondistended, no guarding, nontender, no rebound, no masses, RECTAL: Deferred. GENITAL: Deferred. NEUROLOGICAL: Gross motor function intact sensory function intact, Appropriate for age. MUSCULOSKELETAL: low back nontender, full range of motion. EXTREMITIES: Nontender, full range of motion. SKIN: Color pink, dry, no rash, no lacerations, no abrasions, no contusions. LYMPHATICS: Deferred. Course Quality Measures none Orders Category Date Time Status Bedside COVID-19 Antigen Test NOW Care 01/18/25 09:53 Active Bedside Influenza A&B Antigen Test NOW Care 01/18/25 09:53 Completed EKG (ED ONLY) *Do not use* NOW Care 01/18/25 09:53 Completed EKG (ED Only) Stat Exams 01/18/25 09:53 Draft XR chest 2V Stat Exams 01/18/25 09:53 Completed CBC Stat Lab 01/18/25 10:06 Completed Comprehensive Metabolic Panel Stat Lab 01/18/25 10:06 Completed Drug Screen,Urine Stat Lab 01/18/25 10:05 Completed HCG Qualitative,Urine Stat Lab 01/18/25 10:05 Completed Troponin I Stat Lab 01/18/25 10:06 Completed UA, C/S IF [Urinalysis, C/S if Indicated] Stat Lab 01/18/25 10:05 Completed Vital Signs Vital signs: Vital Signs Temperature 98.6 F 01/18/25 09:42 Pulse Rate 92 01/18/25 09:42 Respiratory Rate 19 01/18/25 09:42 Blood Pressure 140/96 H 01/18/25 09:42 Pulse Oximetry (%) 99 01/18/25 09:42 Oxygen Delivery Method Room Air 01/18/25 09:42 Discharge Plan Plan Patient Disposition: HOME (Self Care) Discharge Disposition comment: Stable Prescriptions/Referrals Prescriptions/Med Rec: No Action acetaminophen-codeine 300-30 mg tablet 2 tab PO Q8H MDD 6 PRN (Reason: pain) Qty: 20 0RF cefdinir 300 mg capsule 300 mg PO BID Qty: 14 0RF Referrals: No Primary/Family,Physician [Primary Care Provider] - In 1 week Problem List Clinical Impression: General ill feeling Patient/Caregiver Discharge Instructions Discharge Activity: activity as tolerated Education Materials: ED Symptoms With Uncertain Cause Additional Instructions: Thank you for the opportunity for serving you today. You are stable for discharged . You are advised to: Follow-up with your PCP in 1 to 2 days Return to ED for worsening of symptoms Increase oral fluids Print Language: [place] Stand Alone Forms: Maddy Award Info., Patient Portal Info Letter PA/AMALIA Supervising Physician PA/AMALIA Supervising Physician: MD glo MDM Narrative MDM hospital course: 34-year-old female patient with no significant past medical history, came in for evaluation regarding feeling ill. Patient told me that she has been having on and off shortness of breath, not feeling well, was diagnosed with UTI 3 weeks ago and was advised to come to the emergency room because antibiotic she was taking which is Bactrim is resistant to the culture and sensitivity results. Patient was also given 3 shots of antibiotic IM. Currently patient is not having any symptoms of dysuria frequency back pain or other complaints. No cough no fever. EKG showed normal sinus rhythm, no ST segment elevation or depression noted. I personally reviewed and interpreted the x-ray of this patient. There is no acute abnormalities found, no infiltrates no pneumothorax no hemothorax normal chest x-ray. Review of other structures was without significant abnormal findings also. I additionally reviewed the radiologist report and agree with the interpretation. Laboratory workup all came back normal including normal urine no leukocytosis the rest of the labs normal. Results discussed with the patient was also given a copy of her laboratory results chest x-ray and EKG pending. Patient was adv ised to follow-up closely with PCP regarding the antibiotic that was prescribed for her today which is Augmentin. I told her it is her decision and and a decision from the PCP whether to continue or not. At this time I do not believe patient needs antibiotic. Stable for discharge home.
== END 2025-01-18 13:11 | disposition home or self-care (01) ==
PROVIDERS: Nurse Practitioner Primary Care; Emergency Provider Family Medicine
DX: R06.02 Shortness of breath (principal)
CPT/HCPCS: 36415; 71046; 80053; 80307; 81001; 81025; 84484; 85025; 87400; 87811; 93005; 99283

== ENCOUNTER → 2025-03-20 | Outpatient (CLI) | payer MEDICAID, SELFPAY ==
[2025-03-20 12:17] LABS: HCG Qualitative,Urine Negative
--- NOTE | 2025-03-20 12:21 | XR_ITS ---
Examination: CTA chest with intravenous contrast 2-D reconstructions 3-D reconstructions, vascular Date and time of exam: March 20, 2025, 1255 hours Indications: Onset shortness of breath chest pain this week CTDI: vol (mGy) 22.5 DLP: (mGycm) 412 Technique: Multiple axial sections of the thorax have been obtained. 3 mm slice thickness, from below the hemidiaphragms to above the apices of the lungs. Mediastinal and lung density settings have been obtained. 2-D sagittal and coronal reconstructions. 3-D angiographic renderings, 3-D volume renderings, 3D post processing, vascular maximum intensity projections obtained. Contrast administered is 100 cc Isovue-370. Low dose protocols were performed. One or more of the following dose reduction techniques were used; automated exposure control, adjustment of the mA and/or KV according to patient size, use of iterative reconstruction technique. Findings: No thoracic aortic aneurysmal dilatation or dissection No pulmonary artery filling defects No paratracheal or tracheobronchial or bronchopulmonary adenopathy. No pneumonia, pulmonary edema or pleural disease No visualized liver or splenic lesion No gallstones No pancreatic or adrenal mass No hydronephrosis IMPRESSION: Negative for pulmonary artery emboli No thoracic aortic aneurysm dilatation or dissection No pneumonia or pulmonary edema or pleural disease
== END | disposition home or self-care (01) ==
PROVIDERS: PCP Nurse Practitioner Family; Referring Provider Nurse Practitioner Family; Visit Provider Nurse Practitioner Family
DX: R79.89 Other specified abnormal findings of blood chemistry (principal); R06.02 Shortness of breath; Z32.00 Encounter for pregnancy test, result unknown
CPT/HCPCS: 71275; 81025; A4649; Q9967

== ENCOUNTER → 2025-05-16 | Outpatient (CLI) | payer MEDICAID, SELFPAY ==
--- NOTE | 2025-05-16 09:00 | XR_ITS ---
Examination: MRI cervical spine without intravenous contrast Date and time of exam: May 16, 2025, 0932 hours INDICATIONS: Neck pain 5 years radiating to the arms weakness in the arms Technique: Multiple axial and sagittal sections of the cervical spine to been obtained. T2 weighted sagittal sections, TR 3, 270, TE 117 T1-weighted sagittal sections, TR 500, TE 11 T1-weighted axial sections, TR 607, TE 12, axial sections TR 18, TE 27 and T2 weighted transverse sections, TR 3920, TE 122. Findings: The entire study is degraded by continuous patient motion Intact odontoid No cervical fracture Mild disc narrowing C5-C6 C6-C7 C2-C3 no disc protrusion C3-C4 no disc protrusion C4-C5 no disc protrusion C5-C6 3 mm central osteophyte disc complex C6-C7 3 mm central subarticular osteophyte disc complex C7-T1 no disc protrusion IMPRESSION: The entire study is degraded by continuous patient motion C5-C6 3 mm central osteophyte disc complex C6-C7 3 mm central subarticular osteophyte disc complex
== END | disposition home or self-care (01) ==
PROVIDERS: PCP Nurse Practitioner Family; Referring Provider Nurse Practitioner Family; Visit Provider Nurse Practitioner Family
DX: M25.78 Osteophyte, vertebrae (principal)
CPT/HCPCS: 72141